=== PATIENT | male | born 1965 | race Caucasian/White ===

== ENCOUNTER → 2016-07-29 | Outpatient (CLI) | payer OTHER ==
--- NOTE | 2016-07-29 14:44 | MR ---
EXAMINATION TYPE: MR lumbar spine wo con DATE OF EXAM: 07/29/2016 2:24 PM COMPARISON: April 18, 2009 HISTORY: Other spondylosis with myelopathy, lumbar pain Multiplanar, MultiSpin echo imaging of the lumbar spine was performed. L1-L2: Mild disc desiccation. Mild posterior disc bulge. No herniation protrusion or central stenosis . Foramina are patent. L2-L3: Normal disc appearance without desiccation. No herniation, protrusion or disc bulging. No ca nal stenosis is present. Foramina are patent bilaterally. L3-L4: Normal disc appearance without desiccation. No herniation, protrusion or disc bulging. No ca nal stenosis is present. Foramina are patent bilaterally. L4-L5: Moderate disc desiccation. Circumferential disc bulge greatest posteriorly effaces the ventral thecal sac mildly. No evidence for herniation or central stenosis. Mild bilateral foraminal encroach ment identified. L5-S1: Normal disc appearance without desiccation. No herniation, protrusion or disc bulging. No ca nal stenosis is present. Foramina are patent bilaterally. Lumbar segments are intact. No paraspinal masses are identified. Conus medullaris has a normal appe arance. T12 hemangioma. IMPRESSION: 1. Degenerative disc disease and disc bulging as discussed.
== END | disposition home or self-care (01) ==
LOC: RADMRIMAIN 13:42
PROVIDERS: ATTEND Family Medicine
DX: M51.06 Intervertebral disc disorders with myelopathy, lumbar region (principal)
CPT/HCPCS: 72148

== ENCOUNTER 2019-09-24 02:32 | Emergency (ER) | payer OTHER ==
[2019-09-24 02:50] VITALS: BP 130/76; PULSE 88; RESP 20; TEMP 99
--- NOTE | 2019-09-24 03:12 | ED ---
General Adult HPI - General Chief complaint: Extremity Injury, Lower Stated complaint: Work Foot Injury Time Seen by Provider: 09/24/19 02:50 Source: patient, family, RN notes reviewed, old records reviewed Mode of arrival: ambulatory Limitations: no limitations - History of Present Illness Initial comments: 54-year-old male presenting for evaluation of right foot pain. Patient states while at work he stepped off of a rubber mat and injured the fifth digit on his right foot. He does have degenerative disc disease and has been dealing with some intermittent pain in the foot as well as several other joints and states this did aggravate his symptoms. No other injuries reported. - Related Data Allergies Allergy/AdvReac Type Severity Reaction Status Date / Time buprenorphine [From Suboxone] Allergy Rash/Hives Verified 09/24/19 02:50 iodine Allergy Rash/Hives Verified 09/24/19 02:50 naloxone [From Suboxone] Allergy Rash/Hives Verified 09/24/19 02:50 Penicillins Allergy Rash/Hives Verified 09/24/19 02:50 Review of Systems ROS Statement: Those systems with pertinent positive or pertinent negative responses have been documented in the HPI. ROS Other: All systems not noted in ROS Statement are negative. Past Medical History Additional Past Medical History / Comment(s): chronic joint pain History of Any Multi-Drug Resistant Organisms: None Reported Additional Past Surgical History / Comment(s): chest tube, eye surgery, vasectomy Past Psychological History: Anxiety, Depression Smoking Status: Current every day smoker Past Alcohol Use History: None Reported Past Drug Use History: None Reported General Exam Limitations: no limitations General appearance: alert, in no apparent distress Head exam: Present: atraumatic, normocephalic Eye exam: Present: normal appearance, PERRL ENT exam: Present: normal exam Neck exam: Present: normal inspection. Absent: tenderness, meningismus Respiratory exam: Present: normal lung sounds bilaterally. Absent: respiratory distress, wheezes Cardiovascular Exam: Present: regular rate, normal rhythm GI/Abdominal exam: Present: soft. Absent: distended, tenderness Extremities exam: Present: other (Right foot, DP and PT pulses are 2+, no obvious deformity, soft tissue swelling at the base of the fifth digit.) Course Vital Signs 09/24/19 02:45 Temperature 99 F Pulse Rate 88 Respiratory 20 Rate Blood Pressure 130/76 O2 Sat by Pulse 99 Oximetry Medical Decision Making - Medical Decision Making X-ray performed of the right foot, negative for fracture dislocation. Patient will use [id number] Tylenol and Motrin for pain. He will follow-up with his primary care physician. If symptoms persist may require repeat x-rays in 7- 10 days. Disposition Clinical Impression: Foot contusion Disposition: HOME SELF-CARE Instructions (If sedation given, give patient instructions): Foot Contusion (ED) Is patient prescribed a controlled substance at d/c from ED?: No Referrals: Marcellus Bernstein MD [Primary Care Provider] - 1-2 days Time of Disposition: 03:22
--- NOTE | 2019-09-24 03:21 | XR ---
EXAMINATION TYPE: XR foot complete RT DATE OF EXAM: 09/24/2019 COMPARISON: NONE HISTORY: Foot pain TECHNIQUE: 3 views FINDINGS: Metatarsals are intact. I see no fracture nor dislocation. Joint spaces appear normal. Ther e are no erosions. There are no pathologic calcifications. IMPRESSION: Negative right foot exam. No fracture.
== END 2019-09-24 03:23 | disposition home or self-care (01) ==
LOC: EC 02:32
DX: S90.31XA Contusion of right foot, initial encounter (principal); F17.200 Nicotine dependence, unspecified, uncomplicated; Z87.39 Personal history of other diseases of the musculoskeletal system and connective tissue; Z88.5 Allergy status to narcotic agent; Z91.048 Other nonmedicinal substance allergy status; Z88.0 Allergy status to penicillin; W01.0XXA Fall on same level from slipping, tripping and stumbling without subsequent striking against object, initial encounter; Y92.69 Other specified industrial and construction area as the place of occurrence of the external cause; Y99.0 Civilian activity done for income or pay
CPT/HCPCS: 99284